=== PATIENT | female | born 1995 | race Caucasian/White ===

== ENCOUNTER → 2019-05-18 | Outpatient (CLI) | payer BC | END | disposition home or self-care (01) | LOC: US 13:13 | PROC: B54CZZZ Ultrasonography of Left Lower Extremity Veins (ICD-10-PCS; principal; 2019-05-18) | PROC: BW4GZZZ Ultrasonography of Pelvic Region (ICD-10-PCS; 2019-05-18) | PROC: BW40ZZZ Ultrasonography of Abdomen (ICD-10-PCS; 2019-05-18) | DX: M79.652 Pain in left thigh (principal) ==